=== PATIENT | female | born 1945 | race Caucasian/White ===

== ENCOUNTER 2016-03-04 18:00 | Inpatient (IN) | payer MEDICARE, OTHER ==
[2016-03-04] MEDS ORDERED: Acetaminophen 325 MG TAB PO PRN (21:01)
[2016-03-04] MEDS: Clotrimazole 1% Cream 15 GM TUBE TOP SCH (21:41)
[2016-03-04] MEDS: Keri Lotion 15 oz BOT TOP SCH (21:41)
[2016-03-05 00:36] VITALS: BMI 31.0
[2016-03-05] MEDS: Levothyroxine Sodium 100 MCG TAB PO SCH (05:28)
[2016-03-05] MEDS: Clotrimazole 1% Cream 15 GM TUBE TOP SCH ×2 (08:59→21:13)
[2016-03-05] MEDS: Keri Lotion 15 oz BOT TOP SCH ×3 (09:00→21:14)
[2016-03-05] MEDS ORDERED: VIMPAT 50 MG PO SCH (09:00)
[2016-03-05] MEDS: risperiDONE 0.5 MG TAB PO SCH ×2 (14:34→21:12)
[2016-03-05] MEDS ORDERED: Acetaminophen 325 MG TAB PO PRN (15:46)
[2016-03-05 17:30] LABS: Bilirubin Negative (Negative); Blood, Urine Trace (Negative); Glucose, Urine (Dipstick) Negative (Negative); Leukocyte Negative (Negative); Nitrite Negative (Negative); Protein, Urine (Dipstick) Negative (Neg-Trace); Specific Gravity, Urine 1.015 (1.005-1.030); Urobilinogen 0.2 mg/dL (0.2-1.0)
[2016-03-05 17:38] LABS: Bacteria/HPF Rare-Few HPF (None Seen); Clarity Hazy (Clear); RBC/HPF 0-3 HPF (0-3); Squamous Epithelial 0-3 HPF (0-3); WBC/HPF 0-3 HPF (0-3)
[2016-03-05] MEDS: Donepezil HCl 10 MG TAB PO SCH (21:11)
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
[2016-03-06 05:19] LABS: #Basophils 0.2 thou/uL (0.0-0.2); #Eosinphils 0.2 thou/uL (0.0-0.7); #Monocytes 0.4 thou/uL (0.11-0.59); #Neutrophils 4.8 thou/uL (1.40-6.50); %Basophils 2.4 % (0.0-1.0); %Eosinophils 2.8 % (0.0-10.0); %Lymphocytes 26.8 % (21.0-51.0); %Monocytes 5.7 % (0.0-10.0); %Neutrophils 62.4 % (42.0-75.0); Hemoglobin 12.7 g/dL (12.0-16.0); Mean Corpuscular HGB CONC 34.3 g/dL (32.0-36.0); Mean Corpuscular Hemoglobin 29.4 pg (27.0-31.0); Mean Corpuscular Volume 85.6 fl (81.0-99.0); Platelet Count 332 thou/uL (130-400); RBC Distribution Width 13.7 % (11.5-14.5); Red Blood Cell (RBC) Count 4.33 mill/uL (4.20-5.40); White Blood Cell (WBC) Count 7.6 thou/uL (4.8-10.8)
[2016-03-06 05:26] LABS: Anion Gap 15 mmol/L (10-20); BUN (Urea Nitrogen) 10 mg/dL (9.8-20.1); Calc. Creatinine Clearance 51 mL/min (70-130); Calcium 9.3 mg/dL (7.8-10.44); Carbon Dioxide 25 mmol/L (23-31); Chloride 102 mmol/L (98-107); Estimated GFR-MDRD 44; Glucose 111 mg/dL (80-115); Potassium 3.4 mmol/L (3.5-5.1); Sodium 139 mmol/L (136-145)
[2016-03-06 05:32] LABS: Hemoglobin A1c 5.6 % (4.0-6.0)
[2016-03-06] MEDS: Levothyroxine Sodium 100 MCG TAB PO SCH (06:33)
[2016-03-06] MEDS: Aspirin 325 MG TAB PO SCH (08:33)
[2016-03-06] MEDS: FLUoxetine HCl 20 MG CAP PO SCH (08:33)
[2016-03-06] MEDS: Cefdinir 300 MG CAP PO SCH (08:33)
[2016-03-06] MEDS: risperiDONE 0.5 MG TAB PO SCH ×3 (08:33→20:56)
[2016-03-06] MEDS: Clotrimazole 1% Cream 15 GM TUBE TOP SCH ×2 (08:34→20:58)
[2016-03-06] MEDS: Keri Lotion 15 oz BOT TOP SCH ×4 (10:47→20:58)
--- NOTE | 2016-03-06 14:50 | PRG ---
DATE OF SERVICE: 03/06/2016 SUBJECTIVE: The patient had a good night, slept and was calm the caregiver that chip with her said that she was wrestle during the night. This morning, she was in bed asleep, but easily awakened and said she feels good this morning. She seemed very calm. OBJECTIVE: GENERAL: The patient is lying in bed, very calm and appears in no distress. VITAL SIGNS: Her temperature is 98.4, pulse 92, respirations 20, O2 saturation 94% on room air, blo od pressure 108/51. LUNGS: Clear. HEART: Regular rate. EXTREMITIES: No edema. LABORATORY DATA: Show H\T\H of 12.7 and 37.0. White cell count 7600 with 62% segs, 27% lymphocytes , and platelet count of 332,000. Sodium is 139, potassium 3.4, BUN 10, creatinine 1.2, glucose 111. TSH 65. ASSESSMENT: 1. Generalized weakness and deconditioning. A. Gradual improvement as of 03/06/2016. 2. Hospitalized at [facility] from 02/24/2016 to 03/04/2016 for fall and altered mental status. She was treated for the following urinary tract infection that is resolving and asymptomatic. A cute cerebrovascular accident with MRI showing small foci of acute ischemia involved in the left post erior frontal white matter. Acute renal failure that resolved with hydration. Psychiatric disorder m anifest with behavioral issues, delusions and aggressiveness. 3. Hypertension. 4. Late effect of cerebrovascular disease. A. Status post embolic cerebrovascular accident involving the left middle cerebral artery follo wing left carotid endarterectomy on 03/24/2014. We leaving patient with right hemiparalysis with flaccid righ t upper extremity. 5. Carotid artery disease, status post right carotid endarterectomy on 03/07/2014. A. Status post left carotid endarterectomy on 03/22/2014, complicated by an embolic cerebrovasc ular accident for which she underwent immediate reexploration and no clots found. 6. Vascular dementia. A. Complicated by psychotic behavioral disorders, manifest with delusions, aggressiveness and r estlessness as of 03/05/2016. 1. Improved after the starting of the risperidone on 03/05/2016 as of 03/06/2016. 7. Depression. 8. History of very poor self-care. A. Requires assistance with activities of daily living. 9. Hypothyroidism. A. Poorly controlled with TSH up to 65. Suspect patient has not been on medication regularly a t home. 10. Venous insufficiency of the lower extremities. 11. Possible focal seizures. A. Presenting with some shaking of the left arm and short periods of unresponsiveness and stari ng. B. EEG showed slowing mainly on the left. No definite seizure activity. C. Started on the trial of Vimpat 50 mg b.i.d. for possible focal seizures. D. No recurrence of any possible seizure activity as of 03/06/2016. 12. Hyperlipidemia. A. Intolerant of statin drugs. 13. Perianal rash, suspect psoriasis. PLAN: Continue present care. Continue Boo catheter. We will later few days try stopping this an d see how she voids. We will increase her Synthroid from 100 mcg to 125 mcg and we will follow her TSH later date.
[2016-03-06] MEDS: Donepezil HCl 10 MG TAB PO SCH (20:57)
[2016-03-07] MEDS ORDERED: Levothyroxine Sodium 125 MCG TAB PO SCH (06:00)
[2016-03-07 08:00] VITALS: TEMP 97.6
[2016-03-07] MEDS: Aspirin 325 MG TAB PO SCH (08:43)
[2016-03-07] MEDS: risperiDONE 0.5 MG TAB PO SCH (08:44)
[2016-03-07] MEDS: Cefdinir 300 MG CAP PO SCH (08:44)
[2016-03-07] MEDS: Keri Lotion 15 oz BOT TOP SCH ×2 (08:45)
[2016-03-07] MEDS: FLUoxetine HCl 20 MG CAP PO SCH (08:45)
[2016-03-07] MEDS: Clotrimazole 1% Cream 15 GM TUBE TOP SCH (08:45)
[2016-03-07 08:46] VITALS: BP 120/56
--- NOTE | 2016-03-07 20:39 | PRG ---
DATE OF SERVICE: 03/07/2016 SUBJECTIVE: The patient said she had a good night. This morning she is sitting up in a chair. She said she want to go home and pretty adamant about this. OBJECTIVE: GENERAL: The patient is alert, sitting in a chair with her head down. VITAL SIGNS: Her temperature is 97.6, pulse 80, respirations 20, O2 sat 93% on room air, and blood pressure 120/56. LUNGS: Clear. HEART: Regular rate. EXTREMITIES: No edema. The patient is walking with physical therapy up to 30 feet with a quad cane , with a minimal assistance needed. She needs some assistance with transfer and getting up from a c hair. LABORATORY DATA: Her urine obtained on 03/05/2016 shows 0-3 rbcs, 0-3 wbcs. ASSESSMENT: 1. Generalized weakness and deconditioning. A. Gradual improvement as of 03/07/2016. 2. Hospitalized at [facility] from 02/24/2016 to 03/04/2016 for fall and altered mental status. She was treated for the following urinary tract infection that is resolving and asymptomatic. A cute cerebrovascular accident with MRI showing small foci of acute ischemia involved in the left post erior frontal white matter. Acute renal failure that resolved with hydration. Psychiatric disorder m anifest with behavioral issues, delusions and aggressiveness. 3. Hypertension. 4. Late effect of cerebrovascular disease. A. Status post embolic cerebrovascular accident involving the left middle cerebral artery follo wing left carotid endarterectomy on 03/24/2014. We leaving patient with right hemiparalysis with flaccid righ t upper extremity. 5. Carotid artery disease, status post right carotid endarterectomy on 03/07/2014. A. Status post left carotid endarterectomy on 03/22/2014, complicated by an embolic cerebrovasc ular accident for which she underwent immediate reexploration and no clots found. 6. Vascular dementia. A. Complicated by psychotic behavioral disorders, manifest with delusions, aggressiveness and r estlessness as of 03/05/2016. 1. Improved after the starting of the risperidone on 03/05/2016 as of 03/07/2016. 7. Depression. 8. History of very poor self-care. A. Requires assistance with activities of daily living. 9. Hypothyroidism. A. Poorly controlled with TSH up to 65. Suspect patient has not been on medication regularly a t home. 10. Venous insufficiency of the lower extremities. 11. Possible focal seizures. A. Presenting with some shaking of the left arm and short periods of unresponsiveness and stari ng. B. EEG showed slowing mainly on the left. No definite seizure activity. C. Started on the trial of Vimpat 50 mg b.i.d. for possible focal seizures. D. No recurrence of any possible seizure activity as of 03/06/2016. 12. Hyperlipidemia. A. Intolerant of statin drugs. 13. Perianal rash, suspect psoriasis. PLAN: The patient's [employer] is in the room with her, and he said right now they are eating, u nit is out. The temperatures are in the 30s, we will go down into the low 20s, possible tinge and t here is no other source of heat in the home. They are working to get this repaired, but it may be a few days. The patient would benefit, stay in the hospital for the physical therapy and have recomm ended she remain here for therapy and this would give her family a little more time to get the heati ng system fixed at home. She will tentatively plan on a discharge on Thursday03/10/2016. We will di scontinue the Boo catheter, continue PT.
--- NOTE | 2016-03-08 18:04 | DIS ---
ADMITTED TO EXTENDED CARE ON: 03/04/2016 DISCHARGED ON: 03/07/2016. 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 She has had a previous right-sided endarterectomy without any difficulty. She has hy pothyroidism and venous insufficiency of the lower extremity and vascular dementia. The patient was hospitalized at [facility] from 02/24/2016-03/04/2016 for a fall and altered mental stat us. She was treated for urinary tract infection that was resolving and asymptomatic. Her MRI showe d that she had a small foci of an acute ischemic event involving the left posterior frontal white ma tter. She also had some mild acute renal failure that resolved with hydration. She had psychiatris t disorder manifest with severe behavioral issues, delusions and aggressiveness. She was transferre d to [facility] on 03/04/2016 for continued physical therapy. HOSPITAL COURSE: The patient on initial examination was very pleasant, recognized me and exam was u nremarkable except for the right flaccid upper extremity from the previous stroke. She also had irr itation perianal area, which is chronic and had a slivery discoloration, probably from the psoriatic rash. For this, she was placed on Lotrisone twice today and this seemed to improve her symptoms, t herapy has begun working with her, she constantly had issues with hollering and screaming and was co nstantly getting up and down the morning to be in bed, morning to be out of bed, morning to go to [facility] restroom. She did have a Boo catheter placed after in and out postvoid catheterization showed a 200 mL residual. UA showed no evidence of urinary tract infection. While at [facility], she had an episode where she had some shaking in the left arm for short periods and being less where than usual, has follow up that might be a focal seizure. EEG did not show any definite seizure act ivity. She was placed on the Vimpat 50 mg b.i.d. for possible seizures. This was not continued bec ause she had had no repeat episodes of this and calls would be prohibitive for her to obtain this. It was elected to just observe her and see how she did in the hospital setting. While in the hospit al, she did not have any seizures because the patient has persistence with the getting up and down f requently and the hollering and the delusional thinking and consult the nurses of the same things be hind her back and combativeness with her . She was placed on risperidone 0.25 mg t.i.d. to h elp with this psychiatric behavioral disorder. The patient did seem to do a little better on this a nd certainly rested better at night. She did well with her physical therapy. Her lab did show that she was hypothyroid. Her TSH was elevated at 265. . Her levothyroxine was increased to 125 mcg. She is on 100 mcg at home, but suspect she has not been taking this. On the morning of 03/07/2016, the patient was up in her chair and seemed stable. She had been doing well with physical therapy. The patient said she wanted to go home had recommended he stay longer for further physical therapy, but said she wanted to go home. Her said that he was out in the home and they were trying to get this fixed and the weather was cold with weather projecting temperature is down in the teens. The patient was agreeable to stay a little longer to give her time to get that she regulat ed. The patient returned late the day of 16, and said she was taking her home she left the hospital with him with no opportunity for me to revisit with her review medicines. We will held her come ba carmen into the office where medicines can be reviewed and reappraise how she is doing. We will try to contact her and see if she is willing to have home health come and check on her and also arranged fo r in-home physical therapy if she is agreeable. DISPOSITION: DIET: Regular diet, no added salt. ACTIVITIES: Ambulate with the use of a walker with the use of her quad cane, which she had been usi ng well in the hospital. MEDICATIONS: Acetaminophen 325 mg 2 every 4 hours as needed, aspirin 325 mg daily, Lotrisone apply to the perianal area b.i.d., Aricept 5 mg at bedtime, fluoxetine 20 mg daily, levothyroxine 125 mcg daily, amlodipine 5 mg daily. The patient in the hospital was placed on risperidone 0.25 mg t.i.d. The patient did not get a prescription for this when she left and will see how she does without thi s. Follow up will contact the patient and try and see she is willing to have home health with PT power barker her try to see her in the office in 2 weeks. In review all her medicines in month we reasse ss her TSH, basic metabolic panel and CBC. CODE STATUS: FULL.
[2016-03-21] MEDS ORDERED: Cyanocobalamin 1000 MCG/ML VIAL IM SCH (09:00)
== END 2016-03-07 14:20 | disposition left against medical advice (07) | DRG 948 ==
LOC: MADMS 18:00
PROVIDERS: ADMIT Family Medicine; ATTEND Family Medicine
DX: R53.1 Weakness (principal); I69.351 Hemiplegia and hemiparesis following cerebral infarction affecting right dominant side; F01.50 Vascular dementia, unspecified severity, without behavioral disturbance, psychotic disturbance, mood disturbance, and anxiety; I10 Essential (primary) hypertension; E03.9 Hypothyroidism, unspecified; E53.8 Deficiency of other specified B group vitamins; F32.9 Major depressive disorder, single episode, unspecified; I87.2 Venous insufficiency (chronic) (peripheral); E78.5 Hyperlipidemia, unspecified; L40.9 Psoriasis, unspecified; F22 Delusional disorders; R46.89 Other symptoms and signs involving appearance and behavior; Z53.21 Procedure and treatment not carried out due to patient leaving prior to being seen by health care provider
CPT/HCPCS: 36415; 80048; 81001; 83036; 84443; 85025; G8978-GP-CK; G8979-GP-CJ

== ENCOUNTER 2016-06-23 02:28 | Emergency (ER) | payer MEDICARE ==
[2016-06-23] MEDS ORDERED: Lorazepam 2 MG/ML VIAL ONE (03:10)
[2016-06-23] MEDS ORDERED: Ketorolac Tromethamine 30 MG/ML VIAL ONE (03:11)
[2016-06-23] MEDS ORDERED: Ondansetron ODT 4 MG TAB ONE (03:11)
[2016-06-23 03:14] LABS: Bilirubin Negative (Negative); Blood, Urine Negative (Negative); Clarity Clear (Clear); Glucose, Urine (Dipstick) Negative (Negative); Leukocyte Negative (Negative); Nitrite Negative (Negative); Protein, Urine (Dipstick) Negative (Neg-Trace); Specific Gravity, Urine 1.015 (1.005-1.030)
[2016-06-23 03:15] LABS: INR-International Normal Ratio 0.9; Prothrombin Time 12.6 SEC (12.0-14.7)
[2016-06-23 03:16] LABS: PTT 29.6 SEC (22.9-36.1)
[2016-06-23 03:23] LABS: ALT (SGPT) 13 U/L (0-55); AST (SGOT) 16 U/L (5-34); Albumin 4.2 g/dL (3.4-4.8); Alkaline Phosphatase 113 U/L (40-150); Anion Gap 17 mmol/L (10-20); BUN (Urea Nitrogen) 22 mg/dL (9.8-20.1); Bilirubin, Total 0.6 mg/dL (0.2-1.2); CK (CPK) 178 U/L (29-168); Calc. Creatinine Clearance 0 mL/min (70-130); Calcium 9.5 mg/dL (7.8-10.44); Carbon Dioxide 25 mmol/L (23-31); Chloride 79 mmol/L (98-107); Estimated GFR-MDRD 43; Globulin 2.5 g/dL (2.4-3.5); Glucose 96 mg/dL (80-115); Magnesium 2.1 mg/dL (1.6-2.6); Potassium 4.8 mmol/L (3.5-5.1); Protein, Total 6.7 g/dL (5.8-8.1)
[2016-06-23 03:29] LABS: Hemoglobin 10.8 g/dL (12.0-16.0); Mean Corpuscular HGB CONC 36.4 g/dL (32.0-36.0); Mean Corpuscular Hemoglobin 30.4 pg (27.0-31.0); Mean Corpuscular Volume 83.6 fl (81.0-99.0); Mean Platelet Volume 6.1 fL (7.4-10.4); Platelet Count 420 thou/uL (130-400); RBC Distribution Width 12.6 % (11.5-14.5); Red Blood Cell (RBC) Count 3.54 mill/uL (4.20-5.40)
[2016-06-23 03:30] LABS: CKMB 4.5 ng/mL (0-6.6); Sodium 116 mmol/L (136-145); Troponin I Less than 0.010 ng/mL (< 0.028)
[2016-06-23 03:33] LABS: Band 3 % (5-11); Lymphocytes 21 % (21-51); Monocytes 10 % (0-10); Neutrophil 66 % (42-75)
[2016-06-23 03:35] LABS: Bacteria/HPF None Seen HPF (None Seen); RBC/HPF 0-3 HPF (0-3); Renal Epithelial 0-3 HPF (0-3); Squamous Epithelial 0-3 HPF (0-3); Transitional Epithelial 0-3 HPF (0-3); WBC/HPF 0-3 HPF (0-3)
--- NOTE | 2016-06-23 07:57 | CT ---
PRELIMINARY REPORT/[facility]/EMERGENCY AFTER HOURS PROCEDURE: EXAM: CT Head Without Intravenous Contrast CLINICAL HISTORY: 70 years old, female; Injury or trauma; Fall TECHNIQUE: Axial computed tomography images of the head/brain without intravenous contrast. Coronal and sagittal reformatted images were created and reviewed. COMPARISON: No relevant prior studies available. FINDINGS: Limitations: Study limited by patient motion. 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 Volume loss an d chronic small vessel ischemic change. No hemorrhage. Ventricles: Unremarkable. No ventriculomegaly. Bones/joints: Unremarkable. No acute fracture. Soft tissues: Unremarkable. Sinuses: Partial opacification of the ethmoid air cells and small fluid levels in the maxillary sinu ses may signify sinusitis. Mastoid air cells: Unremarkable as visualized. No mastoid effusion. IMPRESSION: 1. No intracranial hemorrhage. 2. Partial opacification of the ethmoid air cells and small fluid levels in the maxillary sinuses ma y signify sinusitis. Thank you for allowing us to participate in the care of your patient. Dictated and Authenticated by: Caleb Mann MD 06/23/2016 3:40 AM Central Time ([place] \T\ [place]) FINAL REPORT HEAD CT WITHOUT CONTRAST: Date: 06/23/16 COMPARISON: 05/12/16. HISTORY: Fall, trauma, pain. FINDINGS: I agree with the preliminary report given by Kieran. There is mucosal thickening involving ethmoid air cells, maxillary sinus, and sphenoid sinus bilaterally. Motion artifact limits assessment through t he axial level of the paranasal sinuses. No displaced calvarial fracture. There is extensive encephalomalacia on the left, evidence of extensive remote left-sided infarction. No intracranial hemorrhage, midline shift, mass effect, or ventricular enlargement. IMPRESSION: Mild paranasal sinus disease. No evidence for intracranial hemorrhage. 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 POS: [facility]
--- NOTE | 2016-06-23 08:35 | RAD ---
EXAM: ONE VIEW CHEST: HISTORY: Altered mental status. COMPARISON: 05/12/16. FINDINGS: Elongation of the aorta. Normal cardiac silhouette. The pulmonary vessels and hilum are normal. N o masses or consolidation. No pneumothorax or osseous abnormalities. IMPRESSION: No acute cardiopulmonary process. POS: OFF
[2016-06-23] MEDS ORDERED: Sodium Chloride 0.9% 1,000 ML BAG ONE (09:11)
== END 2016-06-23 04:36 | disposition short-term general hospital (02) ==
LOC: MADERS 02:28
DX: M62.81 Muscle weakness (generalized) (principal); D64.9 Anemia, unspecified; N18.9 Chronic kidney disease, unspecified; E87.1 Hypo-osmolality and hyponatremia
CPT/HCPCS: 36415; 51701; 70450; 71010; 80053; 81001; 82553; 83735; 83880; 84484; 85025; 85610; 85730; 87086; 93005; 96374; 96375; A4353; J1885; J2060; J7050; Q0162